=== PATIENT | female | born 1985 | race Caucasian/White ===

== ENCOUNTER 2017-12-07 08:31 | Emergency (ER) | payer OTHER ==
[~2017-12-07] VITALS: Ht 162.6 cm; Wt 68.0 kg
[~2017-12-07 08:31] MED LIST: CELEBREX200 MG PO; HYDROCODON-ACE1 EAC7 PO; PRILOSEC40 MG PO
[2017-12-07 09:38] LABS: HEMATOCRIT 41.1 % (36.0-46.0); HEMOGLOBIN 13.9 G/DL (11.9-15.5); MCH 30.5 PG (29.0-34.0); MCHC 33.8 G/DL (30.0-36.0); MCV 90.1 FL (83-99); PLATELET COUNT 250 K/uL (156-360); RBC DIS.WIDTH-CV 11.7 % (11.8-14.6); RBC DIS.WIDTH-SD 38.7 % (39-53); RED BLOOD COUNT 4.56 M/uL (3.80-5.20); WHITE BLOOD COUNT 5.8 K/uL (4.1-10.2)
[2017-12-07 09:50] LABS: ALBUMIN 4.1 g/dL (3.2-4.8); CHLORIDE 107 mEq/L (99-109); POTASSIUM 3.6 mEq/L (3.7-5.4); SODIUM 141 mEq/L (136-147)
[2017-12-07 09:52] LABS: GLUCOSE 110 mg/dL (70-99)
[2017-12-07 09:53] LABS: TOTAL PROTEIN 6.6 g/dL (6.4-8.3)
[2017-12-07 09:54] LABS: TOTAL BILIRUBIN 0.9 mg/dL (0.0-1.0)
[2017-12-07 09:56] LABS: ALKALINE PHOSPHATASE 45 IU/L (3-129); CREATININE 0.8 mg/dL (0.6-1.3); GFR ESTIMATE (CALCULATED) > 59 mL/min/
[2017-12-07 09:57] LABS: UREA NITROGEN (BUN) 12 mg/dL (9-23)
[2017-12-07 09:58] LABS: AST (GOT) 12 IU/L (2-34)
[2017-12-07 09:59] LABS: ALT (GPT) 10 IU/L (3-49)
[2017-12-07 10:07] LABS: QUANTITATIVE HCG < 4.0 MIU/ML
[2017-12-07] MEDS ORDERED: ZOFRAN ODT4 MG PO (10:46)
[2017-12-07] MEDS ORDERED: VIBRAMYCIN100 MG PO (10:46)
[2017-12-07 13:35] LABS: SOURCE SWAB
[2017-12-07 14:26] VITALS: BP 110/70
[2017-12-07 15:43] LABS: APPEARANCE SL.HAZY ((CLEAR)); BILIRUBIN NEGATIVE; BLOOD NEGATIVE; COLOR YELLOW ((YELLOW)); GLUCOSE (STRIP) NEGATIVE; KETONES NEGATIVE; LEUKOCYTES TRACE; NITRITE NEGATIVE; PROTEIN (STRIP) NEGATIVE; SPECIFIC GRAVITY 1.009 (1.000-1.030); UROBILINOGEN 0.2 MG/DL (0.2-1.0)
[2017-12-07 15:51] LABS: BACTERIA RARE /HPF; EPITHELIAL CELLS 2+ /HPF; MUCUS TRACE /LPF; RED BLOOD CELLS 0-5 /HPF (0-5); UCUL ADDED? NO; WHITE BLOOD CELLS 0-5 /HPF (0-5)
== END 2017-12-07 14:26 | disposition home or self-care (01) ==
LOC: EME 08:31
PROVIDERS: Nurse Practitioner Family
DX: S60.212A Contusion of left wrist, initial encounter (principal); S60.211A Contusion of right wrist, initial encounter; N93.9 Abnormal uterine and vaginal bleeding, unspecified; T76.21XA Adult sexual abuse, suspected, initial encounter; Y04.8XXA Assault by other bodily force, initial encounter; Z97.5 Presence of (intrauterine) contraceptive device; Z87.442 Personal history of urinary calculi
CPT/HCPCS: 80053; 81003; 84702; 85027; 87210; 87491; 87591; 99281; 99285